=== PATIENT | female | born 1950 | race Caucasian/White ===

== ENCOUNTER 2019-10-14 13:54 | Observation (INO) ==
[2019-10-14 14:38] LABS: Basophils # 0.1 K/mcL (0.0-0.2); Basophils % 1.1 %; Hematocrit 41.1 % (35.3-44.9); Hemoglobin 13.2 g/dL (11.5-15.4); Immature Granulocytes % 0.3 % (0-4); Lymphocytes # 1.8 K/mcL (0.6-4.6); Lymphocytes % 24.3 %; Mean Corpuscular HGB Conc 32.1 g/dL (31.6-35.5); Mean Corpuscular Hemoglobin 29.5 pg (28.0-33.3); Mean Corpuscular Volume 91.9 fL (83.0-100.0); Monocytes # 0.6 K/mcL (0.0-1.3); Monocytes % 8.5 %; Neutrophils # 4.9 K/mcL (1.6-8.9); Platelet Count 259 K/mcL (140-400); Red Blood Count 4.47 M/mcL (3.82-4.97); Red Cell Distribution Width 12.9 % (11.5-14.5); Segmented Neutrophils % 65.8 %; White Blood Count 7.4 K/mcL (4.3-11.1)
[2019-10-14 15:04] LABS: Alanine Aminotransferase 16 Units/L (7-52); Albumin 3.9 g/dL (3.5-5.7); Albumin/Globulin Ratio 1.3 (1.1-2.2); Alkaline Phosphatase 89 Units/L (34-104); Aspartate Amino Transferase 21 Units/L (13-39); BUN/Creatinine Ratio 22 (6-26); Bilirubin,Indirect 0.3 mg/dL (0.0-1.0); Bilirubin,Total 0.3 mg/dL (0.3-1.0); Blood Urea Nitrogen 19 mg/dL (8-23); Calcium 9.5 mg/dL (8.6-10.3); Carbon Dioxide 30 mEq/L (23-29); Chloride 102 mEq/L (98-107); Globulin 3.1 g/dL (2.4-3.5); Glucose 87 mg/dL (70-105); Osmolality,Calculated 290 (280-300); Potassium 3.9 mEq/L (3.5-5.1); Sodium 139 mEq/L (136-145); Troponin I 0.05 ng/mL (< 0.04); eGFR For African Americans > 60 (> 60); eGFR For Non-African Americans > 60 (> 60)
[2019-10-14] MEDS ORDERED: methylPREDNISolone 125 MG/2 ML VIAL IVP ONE (17:49)
[2019-10-14] MEDS ORDERED: Naloxone 0.4 MG/ML INJ IVP PRN (21:25)
[2019-10-14] MEDS ORDERED: Ondansetron 4 MG/2 ML VIAL IVP PRN (21:25)
[2019-10-14] MEDS ORDERED: Acetaminophen 325 MG TABLET PO PRN (21:25)
[2019-10-14] MEDS ORDERED: *HR* HYDROcodone/Acet 5/325 mg TABLET PO PRN (21:25)
[2019-10-14] MEDS ORDERED: Albuterol 2.5 MG/3 ML NEBULIZER IH PRN (21:27)
[2019-10-14] MEDS ORDERED: Azithromycin 500 MG in 0.9 % Sodium Chloride 250 ML IVPB SCH (22:00)
[2019-10-14] MEDS: traZODone 50 MG TABLET PO SCH (22:45)
[2019-10-14] MEDS ORDERED: IPRATROPIUM/ALBUTEROL SULFATE 120 PUFF INHALER IH SCH (23:00)
[2019-10-15] MEDS ORDERED: Ipratropium/Albuterol Neb 3 ML IH SCH
[2019-10-15 02:53] LABS: Basophils % 0.9 %; Hematocrit 42.9 % (35.3-44.9); Hemoglobin 13.6 g/dL (11.5-15.4); Immature Granulocytes % 0.2 % (0-4); Lymphocytes # 0.3 K/mcL (0.6-4.6); Mean Corpuscular HGB Conc 31.7 g/dL (31.6-35.5); Mean Corpuscular Hemoglobin 29.3 pg (28.0-33.3); Mean Corpuscular Volume 92.5 fL (83.0-100.0); Mean Platelet Volume 9.6 fL (9.4-12.4); Monocytes % 0.4 %; Neutrophils # 4.2 K/mcL (1.6-8.9); Platelet Count 267 K/mcL (140-400); Red Blood Count 4.64 M/mcL (3.82-4.97); Red Cell Distribution Width 12.8 % (11.5-14.5); Segmented Neutrophils % 91.5 %; White Blood Count 4.6 K/mcL (4.3-11.1)
[2019-10-15 03:20] LABS: Platelet Estimate Normal (Normal)
[2019-10-15 03:36] LABS: BUN/Creatinine Ratio 22 (6-26); Blood Urea Nitrogen 16 mg/dL (8-23); Calcium 9.4 mg/dL (8.6-10.3); Carbon Dioxide 28 mEq/L (23-29); Chloride 104 mEq/L (98-107); Glucose 117 mg/dL (70-105); Osmolality,Calculated 294 (280-300); Potassium 3.9 mEq/L (3.5-5.1); Sodium 141 mEq/L (136-145); Troponin I 0.03 ng/mL (< 0.04); eGFR For African Americans > 60 (> 60); eGFR For Non-African Americans > 60 (> 60)
[2019-10-15] MEDS: Ipratropium 1 PUFF INHALER IH SCH ×4 (04:15→22:15)
[2019-10-15] MEDS: *HR* Heparin 5,000 UNIT/ML VIAL SQ SCH ×2 (05:02→16:42)
[2019-10-15] MEDS ORDERED: MethylPREDNISolone 40 MG/ML VIAL IVP SCH (06:00)
[2019-10-15] MEDS: Aspirin Enteric Coated 81 MG Tablet PO SCH (08:52)
[2019-10-15] MEDS: Metoprolol XL (24 HR) Succ 50 MG TAB.ER.24H PO SCH (08:52)
[2019-10-15] MEDS: tiZANidine 4 MG TABLET PO SCH ×3 (08:52→20:55)
[2019-10-15] MEDS ORDERED: *HR* LORazepam 0.5 MG TABLET PO PRN (09:43)
[2019-10-15] MEDS: Budesonide/Formoterol 80/4.5 1 PUFF INH IH SCH ×2 (10:24→22:16)
[2019-10-15] MEDS: Azithromycin 250 MG TABLET PO SCH (11:08)
[2019-10-15] MEDS: predniSONE 20 MG TABLET PO SCH (11:08)
[2019-10-15 11:37] LABS: VBG HCO3 30 mEq/L (21-27); VBG PCO2 48 mmHg (41-51); VBG PO2 180 mmHg (25-50)
[2019-10-15] MEDS: traZODone 50 MG TABLET PO SCH (20:55)
[2019-10-16] MEDS: Ipratropium 1 PUFF INHALER IH SCH ×4 (03:35→21:42)
[2019-10-16] MEDS: *HR* Heparin 5,000 UNIT/ML VIAL SQ SCH ×2 (05:04→17:51)
[2019-10-16] MEDS: Budesonide/Formoterol 80/4.5 1 PUFF INH IH SCH ×2 (07:35→21:43)
[2019-10-16] MEDS: predniSONE 20 MG TABLET PO SCH (08:22)
[2019-10-16] MEDS: Azithromycin 250 MG TABLET PO SCH (08:22)
[2019-10-16] MEDS: tiZANidine 4 MG TABLET PO SCH ×3 (08:22→21:06)
[2019-10-16] MEDS: Aspirin Enteric Coated 81 MG Tablet PO SCH (08:22)
[2019-10-16] MEDS: Metoprolol XL (24 HR) Succ 50 MG TAB.ER.24H PO SCH (08:23)
[2019-10-16] MEDS: traZODone 50 MG TABLET PO SCH (21:06)
[2019-10-17] MEDS: Ipratropium 1 PUFF INHALER IH SCH ×2 (03:36→09:57)
[2019-10-17] MEDS: *HR* Heparin 5,000 UNIT/ML VIAL SQ SCH (05:11)
[2019-10-17 06:37] VITALS: BP 133/69
[2019-10-17] MEDS: Aspirin Enteric Coated 81 MG Tablet PO SCH (09:04)
[2019-10-17] MEDS: tiZANidine 4 MG TABLET PO SCH (09:05)
[2019-10-17] MEDS: Metoprolol XL (24 HR) Succ 50 MG TAB.ER.24H PO SCH (09:05)
[2019-10-17] MEDS: predniSONE 20 MG TABLET PO SCH (09:05)
[2019-10-17] MEDS: Azithromycin 250 MG TABLET PO SCH (09:05)
[2019-10-17] MEDS: Budesonide/Formoterol 80/4.5 1 PUFF INH IH SCH (09:57)
== END 2019-10-17 11:55 | disposition home or self-care (01) ==
LOC: 2NENU 13:54 → EMEROOARM 13:54 → MERGE 18:26 → 2NENU 19:53 → 3BNU 10-15 20:36
PROVIDERS: ADMIT Student in an Organized Health Care Education/Training Program; ATTEND Student in an Organized Health Care Education/Training Program